=== PATIENT | female | born 2000 | race Hispanic/Latino ===

== ENCOUNTER 2023-07-14 08:09 | Outpatient (CLI) | payer OTHER | END 2023-07-14 08:10 | disposition home or self-care (01) | LOC: BICMRI 08:09 | PROVIDERS: ATTEND Orthopaedic Surgery | DX: M23.91 Unspecified internal derangement of right knee (principal); M25.461 Effusion, right knee; M71.21 Synovial cyst of popliteal space [Baker], right knee ==

== ENCOUNTER 2023-07-22 11:23 | Inpatient (IN) | payer OTHER ==
[2023-07-22 12:01] LABS: #Eosinphils 0.1 thou/uL (0.0-0.7); #Monocytes 0.4 thou/uL (0.11-0.59); #Neutrophils 4.4 thou/uL (1.40-6.50); %Basophils 0.2 % (0.0-1.0); %Eosinophils 0.9 % (0.0-10.0); %Lymphocytes 26.8 % (21.0-51.0); %Monocytes 6.2 % (0.0-10.0); %Neutrophils 65.7 % (42.0-75.0); Hematocrit 35.7 % (36.0-47.0); Hemoglobin 11.2 g/dL (12.0-16.0); Mean Corpuscular HGB CONC 31.4 g/dL (32.0-36.0); Mean Corpuscular Hemoglobin 26.3 pg (27.0-31.0); Mean Corpuscular Volume 83.8 fl (78.0-98.0); Mean Platelet Volume 9.2 fL (7.4-10.4); Platelet Count 497 10x3/uL (130-400); Red Blood Cell (RBC) Count 4.26 mill/uL (4.20-5.40); White Blood Cell (WBC) Count 6.6 10x3/uL (4.8-10.8)
[2023-07-22 12:14] LABS: BHCG - Serum Negative (NEGATIVE); Pregs Control Background? CLEAR/WHITE (CLR/WHITE); Pregs Control Bar Appear? YES (CONTROL BAR)
[2023-07-22 12:23] LABS: ALT (SGPT) 17 U/L (8-55); AST (SGOT) 23 U/L (5-34); Alkaline Phosphatase 55 U/L (40-110); Anion Gap 13 mmol/L (10-20); BUN (Urea Nitrogen) 14 mg/dL (7.0-18.7); Bilirubin, Total 0.3 mg/dL (0.2-1.2); CRP (Inflammatory) 8.99 mg/dL (= or < 0.5); Calc. Creatinine Clearance 0 mL/min (70-130); Calcium 9.7 mg/dL (7.8-10.44); Carbon Dioxide 23 mmol/L (22-29); Chloride 102 mmol/L (98-107); Estimated GFR 112; Globulin 4.5 g/dL (2.4-3.5); Glucose 81 mg/dL (70-105); Potassium 4.1 mmol/L (3.5-5.1); Protein, Total 8.5 g/dL (6.0-8.3); Sodium 134 mmol/L (136-145)
[2023-07-22 15:47] VITALS: BMI 21.2
[2023-07-22] MEDS ORDERED: Midazolam HCl 2 mg/2 ml Vial ONE (17:37)
[2023-07-22] MEDS ORDERED: Sodium Chloride 0.9% 100 ML ONE (17:54)
[2023-07-22] MEDS ORDERED: cefTRIAXone (ROCEPHIN) 1 GM VIAL ONE (17:54)
[2023-07-22] MEDS ORDERED: PROPOFOL 20 ML ONE (17:55)
[2023-07-22] MEDS ORDERED: Lidocaine 1% PF 5 ML VIAL ONE (17:55)
[2023-07-22] MEDS ORDERED: Dexamethasone 20 MG/5 ML VIAL ONE (17:55)
[2023-07-22] MEDS ORDERED: fentaNYL 50 mcg/mL 1 mL Vial ONE ×4 (17:55→19:28)
[2023-07-22] MEDS ORDERED: Ondansetron PF 4 MG/2 ML Vial ONE (17:55)
[2023-07-22] MEDS ORDERED: Lidocaine 1% (PF) 30 ML VIAL ONE (17:57)
[2023-07-22] MEDS ORDERED: EPINEPHrine 1 MG/ML VIAL ONE (17:57)
[2023-07-22] MEDS ORDERED: Bupivacaine 0.25% HCL 30 ML VIAL ONE (17:57)
[2023-07-22] MEDS ORDERED: Meperidine HCl/PF 25 MG (1 mL) VIAL ONE (17:58)
[2023-07-22] MEDS ORDERED: Ketorolac Tromethamine 30 MG (1 mL) VIAL ONE (18:20)
[2023-07-22] MEDS ORDERED: Morphine 4 MG/ML VIAL ONE (19:42)
[2023-07-22] MEDS ORDERED: HYDROcodone/Acetaminophen 5/325 mg Tablet PO PRN (20:37)
[2023-07-22] MEDS ORDERED: Acetaminophen 325 MG TAB PO PRN (20:37)
[2023-07-22] MEDS ORDERED: Milk Of Magnesia 30 ML UDCUP PO PRN (20:37)
[2023-07-22] MEDS ORDERED: fentaNYL 50 mcg/mL 1 mL Vial SLOW IVP PRN (20:37)
[2023-07-22] MEDS ORDERED: Ondansetron PF 4 MG/2 ML Vial IVP PRN (20:37)
[2023-07-22] MEDS ORDERED: traMADol HCl 50 MG TAB PO PRN ×2 (20:37)
[2023-07-22] MEDS ORDERED: Morphine 2 MG/ML VIAL SLOW IVP PRN (20:37)
[2023-07-22] MEDS ORDERED: Bisacodyl 10 MG SUPP PR PRN (20:37)
[2023-07-22] MEDS ORDERED: Promethazine HCl 25 MG/ML VIAL IM PRN (20:37)
[2023-07-22 20:49] LABS: RBC Count-Automated (BF) 137614 /cu.mm; WBC/Nucleated-Auto (BF) 35742 /cu.mm
[2023-07-22 20:52] LABS: BF Color Red; Body Fluid Source Synovial Fluid; Clarity Cloudy/Turbid (Clear); Tube # EDTA
[2023-07-22 20:59] LABS: BF Segmented Neutrophils 90 %; Cell Count Non Hematic 3 %; Lymphocytes 7 %
[2023-07-22] MEDS: HYDROcodone/Acetaminophen 5/325 mg Tablet PO PRN (21:34)
[2023-07-22] MEDS: Aspirin 81 mg Enteric Coated Tablet PO SCH (21:38)
[2023-07-22] MEDS: Ketorolac Tromethamine 30 MG (1 mL) VIAL IVP SCH (21:39)
[2023-07-23] MEDS: cefTRIAXone\\ROCEPHIN 1 GM in Sodium Chloride 0.9% 100 ML IVPB SCH (17:41)
[2023-07-23] MEDS ORDERED: cefTRIAXone Sodium 1,000 MG in Syringe 0 ML IVPB SCH (18:00)
[2023-07-24] MEDS: cefTRIAXone\\ROCEPHIN 1 GM in Sodium Chloride 0.9% 100 ML IVPB SCH (15:19)
[2023-07-24 16:10] VITALS: BP 116/83; TEMP 97.6
[2023-07-26 02:27] LABS: Chlam.trachomatis by PCR,Urine Not Detected (NotDetected); GC N.gonorrhoeae PCR,UrineVOID Not Detected (NotDetected)
[2023-07-28 12:52] LABS: ANA Symphony (Qualitative) Negative (Negative); ANA Symphony (Quantitative) 0.3 Ratio (< 0.7 Negative); dsDNA IgG Antibody 1.2 IU/mL (<10 Negative)
== END 2023-07-24 18:50 | disposition home or self-care (01) | DRG 487 ==
LOC: ERS 11:23 → SJJU 13:18 → INTOOBSV 13:18 → OBSVTOIN 07-23 15:14
PROVIDERS: ADMIT Orthopaedic Surgery; ATTEND Orthopaedic Surgery
PROC: 0S9C0ZZ Drainage of Right Knee Joint, Open Approach (ICD-10-PCS; principal; 2023-07-22)
PROC: 0SBC0ZX Excision of Right Knee Joint, Open Approach, Diagnostic (ICD-10-PCS; 2023-07-22)
DX: M00.9 Pyogenic arthritis, unspecified (principal); Z79.899 Other long term (current) drug therapy
CPT/HCPCS: 36415; 80053; 82945; 84703; 85025; 85060; 86038; 86140; 86225; 87040; 87070; 87205; 87491; 87591; 87661; 88305; 89051; 93005; 96374; 96376; G0378; J0171; J0665; J0696; J1100; J1885; J2001; J2175; J2250; J2270; J2405; J2704; J3010; J3490